=== PATIENT | male | born 1980 | race Caucasian/White ===

== ENCOUNTER 2016-10-29 17:15 | Emergency (ER) | payer MEDICAID ==
[~2016-10-29] VITALS: Ht 170.2 cm; Wt 69.0 kg
[2016-10-29] MEDS ORDERED: LORazepam 2 MG/ML VIAL ONE (17:36)
[2016-10-29] MEDS ORDERED: DiphenhydrAMINE HCL 50 MG/ML VIAL ONE (17:36)
[2016-10-29] MEDS ORDERED: HALOPERIDOL LACTATE 5 MG/ML VIAL ONE (17:36)
[2016-10-29] MEDS ORDERED: LORazepam 2 MG/ML VIAL IM ONE (17:45)
[2016-10-29] MEDS ORDERED: DiphenhydrAMINE HCL 50 MG/ML VIAL IM ONE (17:45)
[2016-10-29] MEDS ORDERED: HALOPERIDOL LACTATE 5 MG/ML VIAL IM ONE (17:45)
[2016-10-29] MEDS ORDERED: [UNRECOGNIZED DRUG - REMARK] PO (17:59)
[2016-10-29 19:38] LABS: BASOPHILS % (AUTO) 0.6 % (0.0-2.0); HEMATOCRIT 44.2 % (41-53); HEMOGLOBIN 14.6 g/dL (13.5-17.5); LYMPHOCYTES # (AUTO) 2.9 K/uL (1.0-4.8); LYMPHOCYTES % (AUTO) 42.1 % (22.0-44.0); MEAN CORPUSCULAR HEMOGLOBIN 30.4 pg (26.0-34.0); MEAN CORPUSCULAR VOLUME 92 fL (80-100); MONOCYTES # (AUTO) 0.4 K/uL (0.1-1.0); MONOCYTES % (AUTO) 6.4 % (2.0-9.0); NEUTROPHILS # (AUTO) 3.4 K/uL (1.8-7.7); NEUTROPHILS % (AUTO) 48.9 % (40.0-70.0); PLATELET COUNT (AUTO) 329 K/uL (150-450); RED CELL DISTRIBUTION WIDTH 13.4 % (11.5-14.5); WHITE BLOOD COUNT (AUTO) 6.9 K/uL (4.5-11.0)
[2016-10-29 19:49] LABS: ANION GAP 14 mmol/L (8-16); CARBON DIOXIDE 24 mmol/L (22-29); CHLORIDE 107 mmol/L (98-107); CREATININE 1.07 mg/dL (0.60-1.30); GLOMERULAR FILTR. RATE CALC > 60 mL/min (>60); POTASSIUM 3.8 mmol/L (3.5-5.1); SODIUM SERUM 145 mmol/L (136-145); UREA NITROGEN, BLOOD 14 mg/dL (7-18)
[2016-10-29 19:50] LABS: CALCIUM, TOTAL 8.1 mg/dL (8.8-10.5)
[2016-10-29 19:55] LABS: ALANINE AMINOTRANSFERASE 32 U/L (12-78); ALBUMIN 3.9 g/dL (3.4-5.0); ASPARTATE AMINOTRANSFERASE 24 U/L (15-37); BILIRUBIN,TOTAL 0.2 mg/dL (0.1-1.0); TOTAL PROTEIN, SERUM 7.3 g/dL (6.4-8.2)
[2016-10-30 03:47] VITALS: BP 122/78
== END 2016-10-30 03:54 | disposition home or self-care (01) ==
LOC: EMS 17:17
DX: F10.229 Alcohol dependence with intoxication, unspecified (principal); I10 Essential (primary) hypertension; F17.210 Nicotine dependence, cigarettes, uncomplicated; F12.90 Cannabis use, unspecified, uncomplicated; Y90.7 Blood alcohol level of 200-239 mg/100 ml
CPT/HCPCS: 36415; 80053; 85025; 96372; 99284; G0480; J1200; J1630; J2060

== ENCOUNTER 2017-01-17 09:48 | Emergency (ER) | payer MEDICAID ==
[~2017-01-17] VITALS: Ht 167.6 cm; Wt 75.0 kg
[~2017-01-17 09:48] MED LIST: [UNRECOGNIZED DRUG - REMARK] PO
[2017-01-17 09:55] VITALS: BP 157/101
[2017-01-17] MEDS ORDERED: IBUPROFEN 800 MG TABLET PO ONE (11:00)
== END 2017-01-17 12:55 | disposition home or self-care (01) ==
LOC: EMS 09:53
DX: S63.502A Unspecified sprain of left wrist, initial encounter (principal); I10 Essential (primary) hypertension; F17.210 Nicotine dependence, cigarettes, uncomplicated; X58.XXXA Exposure to other specified factors, initial encounter; Y93.B2 Activity, push-ups, pull-ups, sit-ups; Y92.89 Other specified places as the place of occurrence of the external cause; Y99.8 Other external cause status
CPT/HCPCS: 99284

== ENCOUNTER 2017-02-01 13:38 | Emergency (ER) | payer MEDICAID ==
[~2017-02-01] VITALS: Ht 167.6 cm; Wt 75.0 kg
[2017-02-01 17:12] VITALS: BP 146/88
== END 2017-02-01 17:13 | disposition home or self-care (01) ==
LOC: EMS 13:42
DX: M25.532 Pain in left wrist (principal); I10 Essential (primary) hypertension; F17.210 Nicotine dependence, cigarettes, uncomplicated
CPT/HCPCS: 99281

== ENCOUNTER 2017-06-03 09:54 | Emergency (ER) | payer MEDICAID ==
[~2017-06-03] VITALS: Ht 167.6 cm; Wt 72.7 kg
[2017-06-03 12:51] VITALS: BP 156/108
== END 2017-06-03 13:01 | disposition home or self-care (01) ==
LOC: EMS 09:55
DX: Z11.1 Encounter for screening for respiratory tuberculosis (principal); R76.11 Nonspecific reaction to tuberculin skin test without active tuberculosis; I10 Essential (primary) hypertension; F17.210 Nicotine dependence, cigarettes, uncomplicated
CPT/HCPCS: 99283; 99406

== ENCOUNTER 2017-06-10 10:14 | Emergency (ER) | payer MEDICAID ==
[~2017-06-10] VITALS: Ht 167.6 cm; Wt 77.0 kg
[2017-06-10] MEDS ORDERED: ATEN50TA PO (10:23)
[2017-06-10 11:06] VITALS: BP 145/92
== END 2017-06-10 11:21 | disposition home or self-care (01) ==
LOC: EMS 10:15
DX: I10 Essential (primary) hypertension (principal); F17.210 Nicotine dependence, cigarettes, uncomplicated
CPT/HCPCS: 99281

== ENCOUNTER 2017-08-05 05:38 | Emergency (ER) | payer MEDICAID ==
[~2017-08-05] VITALS: Ht 172.7 cm; Wt 98.2 kg
[~2017-08-05 05:38] MED LIST changes: +ATEN50TA PO; -[UNRECOGNIZED DRUG - REMARK] PO
[2017-08-05 05:41] VITALS: BP 158/105
== END 2017-08-05 05:52 | disposition left against medical advice (07) ==
LOC: EMS 05:40
DX: Z53.21 Procedure and treatment not carried out due to patient leaving prior to being seen by health care provider (principal)

== ENCOUNTER 2017-11-07 23:19 | Emergency (ER) | payer MEDICAID ==
[~2017-11-07] VITALS: Ht 167.6 cm; Wt 90.9 kg
[2017-11-07 23:40] VITALS: BP 153/98
== END 2017-11-08 01:42 | disposition left against medical advice (07) ==
LOC: EMS 23:19
DX: M79.642 Pain in left hand (principal); M79.89 Other specified soft tissue disorders; F17.210 Nicotine dependence, cigarettes, uncomplicated; I10 Essential (primary) hypertension; Z53.21 Procedure and treatment not carried out due to patient leaving prior to being seen by health care provider
CPT/HCPCS: 99281

== ENCOUNTER 2017-12-03 14:22 | Emergency (ER) | payer MEDICAID ==
[~2017-12-03] VITALS: Ht 167.6 cm; Wt 75.0 kg
[2017-12-03] MEDS ORDERED: IBUP-2354 PO (14:30)
[2017-12-03] MEDS ORDERED: HYDROCODONE/ACETAMINOPHEN 5-325 MG TABLET PO ONE (15:15)
[2017-12-03 15:47] LABS: BASOPHILS % (AUTO) 0.9 % (0.0-2.0); EOSINOPHILS % (AUTO) 2.5 % (1.0-6.0); HEMATOCRIT 48.1 % (41-53); HEMOGLOBIN 16.5 g/dL (13.5-17.5); LYMPHOCYTES # (AUTO) 0.7 K/uL (1.0-4.8); LYMPHOCYTES % (AUTO) 10.9 % (22.0-44.0); MEAN CORPUSCULAR HEMOGLOBIN 31.5 pg (26.0-34.0); MEAN CORPUSCULAR HGB CONC 34.3 G/dL (31.0-37.0); MEAN CORPUSCULAR VOLUME 92 fL (80-100); MONOCYTES # (AUTO) 0.5 K/uL (0.1-1.0); MONOCYTES % (AUTO) 8.3 % (2.0-9.0); NEUTROPHILS # (AUTO) 5.1 K/uL (1.8-7.7); NEUTROPHILS % (AUTO) 77.4 % (40.0-70.0); PLATELET COUNT (AUTO) 182 K/uL (150-450); RED BLOOD CELL COUNT(AUTO) 5.24 MIL/uL (4.50-5.90); RED CELL DISTRIBUTION WIDTH 12.9 % (11.5-14.5)
[2017-12-03 15:56] LABS: ANION GAP 13 mmol/L (8-16); CALCIUM, TOTAL 9.5 mg/dL (8.8-10.5); CARBON DIOXIDE 26 mmol/L (22-29); CHLORIDE 95 mmol/L (98-107); CREATININE 0.84 mg/dL (0.60-1.30); GLOMERULAR FILTR. RATE CALC > 60 mL/min (>60); GLUCOSE,RANDOM 114 mg/dL (70-110); POTASSIUM 3.7 mmol/L (3.5-5.1); SODIUM SERUM 134 mmol/L (136-145); UREA NITROGEN, BLOOD 6 mg/dL (7-18)
[2017-12-03 16:01] LABS: ALANINE AMINOTRANSFERASE 478 U/L (12-78); ALBUMIN 3.3 g/dL (3.4-5.0); ALKALINE PHOSPHATASE 248 U/L (46-116); ASPARTATE AMINOTRANSFERASE 243 U/L (15-37); BILIRUBIN,TOTAL 0.3 mg/dL (0.1-1.0)
[2017-12-03 16:15] LABS: PLATELET MORPHOLOGY COMMENT GIANT PLTS PRESENT
[2017-12-03 16:31] LABS: APPEARANCE,URINE CLEAR (CLEAR); BILIRUBIN,URINE NEGATIVE (NEGATIVE); GLUCOSE, URINE (UA) NEGATIVE (NEGATIVE); KETONES,URINE NEGATIVE (NEGATIVE); LEUKOCYTE ESTERASE ,URINE NEGATIVE (NEGATIVE); NITRATE,URINE NEGATIVE (NEGATIVE); OCCULT BLOOD,URINE NEGATIVE (NEGATIVE); PROTEIN,URINE TRACE (NEGATIVE)
[2017-12-03 16:33] LABS: AMPHET/METH SCREEN,URINE NEGATIVE (NEGATIVE); BARBITURATE SCREEN, URINE NEGATIVE (NEGATIVE); BENZODIAZEPINES SCREEN,URINE NEGATIVE (NEGATIVE); CANNABINOID SCREEN,URINE POSITIVE (NEGATIVE); COCAINE SCREEN,URINE NEGATIVE (NEGATIVE); METHADONE SCREEN, URINE NEGATIVE (NEGATIVE); OPIATE SCREEN,URINE NEGATIVE (NEGATIVE)
[2017-12-03 16:35] LABS: PHENCYCLIDINE SCREEN,URINE NEGATIVE (NEGATIVE)
[2017-12-03 17:11] VITALS: BP 131/104
== END 2017-12-03 17:20 | disposition home or self-care (01) ==
LOC: EMS 14:23
DX: I10 Essential (primary) hypertension (principal); F10.20 Alcohol dependence, uncomplicated; F17.210 Nicotine dependence, cigarettes, uncomplicated; F12.90 Cannabis use, unspecified, uncomplicated
CPT/HCPCS: 70450; 93005; 99285; 99406

== ENCOUNTER 2018-01-27 14:59 | Emergency (ER) | payer MEDICAID ==
[~2018-01-27] VITALS: Ht 167.6 cm; Wt 72.7 kg
[~2018-01-27 14:59] MED LIST changes: -ATEN50TA PO; +IBUP-2354 PO
[2018-01-27] MEDS ORDERED: KETOROLAC TROMETHAMINE 10 MG TABLET PO ONE (17:15)
[2018-01-27 17:23] VITALS: BP 147/96
== END 2018-01-27 17:37 | disposition home or self-care (01) ==
LOC: EMS 15:01
DX: S60.211A Contusion of right wrist, initial encounter (principal); I10 Essential (primary) hypertension; F17.210 Nicotine dependence, cigarettes, uncomplicated; W19.XXXA Unspecified fall, initial encounter; Y93.89 Activity, other specified; Y92.89 Other specified places as the place of occurrence of the external cause; Y99.8 Other external cause status
CPT/HCPCS: 99284

== ENCOUNTER 2018-09-20 12:03 | Emergency (ER) | payer MEDICAID ==
[~2018-09-20] VITALS: Ht 167.6 cm; Wt 75.0 kg
[2018-09-20 13:31] VITALS: BP 141/100
== END 2018-09-20 13:35 | disposition home or self-care (01) ==
LOC: EMS 12:04
DX: J20.9 Acute bronchitis, unspecified (principal); I10 Essential (primary) hypertension; M79.10 Myalgia, unspecified site

== ENCOUNTER 2018-11-05 15:00 | Emergency (ER) | payer MEDICAID | END 2018-11-05 15:18 | disposition left against medical advice (07) | LOC: EMS 15:01 | DX: Z00.00 Encounter for general adult medical examination without abnormal findings (principal); Z53.21 Procedure and treatment not carried out due to patient leaving prior to being seen by health care provider ==

== ENCOUNTER 2018-11-06 00:54 | Emergency (ER) | payer MEDICAID ==
[~2018-11-06] VITALS: Ht 167.6 cm; Wt 72.7 kg
[2018-11-06] MEDS ORDERED: MethylPREDNISolone SOD SUCC 125 MG/2 ML VIAL IM ONE (01:45)
[2018-11-06] MEDS ORDERED: LIDOCAINE/PF 1% 2 ML VIAL IM ONE (01:45)
[2018-11-06] MEDS ORDERED: CefTRIAXone SODIUM 1 GM/VIAL IM ONE (01:45)
[2018-11-06 03:04] LABS: BASOPHILS % (AUTO) 0.7 % (0.0-2.0); EOSINOPHILS % (AUTO) 0.6 % (1.0-6.0); HEMATOCRIT 43.8 % (41-53); HEMOGLOBIN 14.8 g/dL (13.5-17.5); LYMPHOCYTES # (AUTO) 2.2 K/uL (1.0-4.8); LYMPHOCYTES % (AUTO) 12.4 % (22.0-44.0); MEAN CORPUSCULAR HEMOGLOBIN 30.4 pg (26.0-34.0); MEAN CORPUSCULAR HGB CONC 33.7 G/dL (31.0-37.0); MEAN CORPUSCULAR VOLUME 90 fL (80-100); MONOCYTES # (AUTO) 1.8 K/uL (0.1-1.0); MONOCYTES % (AUTO) 10.1 % (2.0-9.0); NEUTROPHILS # (AUTO) 13.8 K/uL (1.8-7.7); NEUTROPHILS % (AUTO) 76.2 % (40.0-70.0); PLATELET COUNT (AUTO) 380 K/uL (150-450); RED BLOOD CELL COUNT(AUTO) 4.86 MIL/uL (4.50-5.90); RED CELL DISTRIBUTION WIDTH 13.5 % (11.5-14.5)
[2018-11-06] MEDS ORDERED: SODIUM CHLORIDE 0.9% 1,000 ML IV ONE (03:15)
[2018-11-06] MEDS ORDERED: KETOROLAC TROMETHAMINE 30 MG/ML VIAL IVP ONE (03:15)
[2018-11-06] MEDS ORDERED: MethylPREDNISolone SOD SUCC 125 MG/2 ML VIAL IVP ONE (03:15)
[2018-11-06] MEDS ORDERED: CefTRIAXone 1 GM/DEXTROSE 50 ML IV ONE (03:15)
[2018-11-06 03:19] LABS: ANION GAP 8 mmol/L (8-16); CALCIUM, TOTAL 9.2 mg/dL (8.8-10.5); CARBON DIOXIDE 28 mmol/L (22-29); CHLORIDE 93 mmol/L (98-107); CREATININE 0.87 mg/dL (0.60-1.30); GLOMERULAR FILTR. RATE CALC > 60 mL/min (>60); GLUCOSE,RANDOM 95 mg/dL (70-110); SODIUM SERUM 129 mmol/L (136-145); UREA NITROGEN, BLOOD 12 mg/dL (7-18)
[2018-11-06 03:24] LABS: ALANINE AMINOTRANSFERASE 18 U/L (12-78); ALBUMIN 3.5 g/dL (3.4-5.0); ALKALINE PHOSPHATASE 99 U/L (46-116); ASPARTATE AMINOTRANSFERASE 11 U/L (15-37); BILIRUBIN,TOTAL 0.6 mg/dL (0.1-1.0); TOTAL PROTEIN, SERUM 8.3 g/dL (6.4-8.2)
[2018-11-06] MEDS ORDERED: CloNIDine HCL 0.2 MG TABLET PO ONE (03:30)
[2018-11-06 04:15] VITALS: BP 174/81
== END 2018-11-06 05:00 | disposition short-term general hospital (02) ==
LOC: EMS 00:55
DX: J36 Peritonsillar abscess (principal)
CPT/HCPCS: 36415; 70360; 80053; 83605; 85025; 87040; 87430; 96365; 96375; 99285; J0696; J1885; J2930; J7030

== ENCOUNTER 2019-08-01 08:57 | Emergency (ER) | payer MEDICAID ==
[~2019-08-01] VITALS: Ht 167.6 cm; Wt 72.7 kg
[2019-08-01 09:07] VITALS: BP 156/115
== END 2019-08-01 10:25 | disposition left against medical advice (07) ==
LOC: EMS 08:58
DX: J02.9 Acute pharyngitis, unspecified (principal); Z53.21 Procedure and treatment not carried out due to patient leaving prior to being seen by health care provider

== ENCOUNTER 2019-08-01 15:36 | Emergency (ER) | payer MEDICAID ==
[~2019-08-01] VITALS: Ht 167.6 cm; Wt 75.0 kg
[2019-08-01] MEDS ORDERED: KETOROLAC TROMETHAMINE 30 MG/ML VIAL IVP ONE (16:15)
[2019-08-01] MEDS ORDERED: CLINDAMYCIN 900 MG/D5% WATER 50 ML IV ONE (16:15)
[2019-08-01] MEDS ORDERED: MethylPREDNISolone SOD SUCC 125 MG/2 ML VIAL IVP ONE (16:15)
[2019-08-01] MEDS ORDERED: SODIUM CHLORIDE 0.9% 1,000 ML IV ONE (16:15)
[2019-08-01 16:31] LABS: BASOPHILS % (AUTO) 0.4 % (0.0-2.0); EOSINOPHILS % (AUTO) 0 % (1.0-6.0); HEMOGLOBIN 14.8 g/dL (13.5-17.5); LYMPHOCYTES % (AUTO) 4.4 % (22.0-44.0); MEAN CORPUSCULAR HEMOGLOBIN 31.5 pg (26.0-34.0); MEAN CORPUSCULAR HGB CONC 33.7 G/dL (31.0-37.0); MEAN CORPUSCULAR VOLUME 93 fL (80-100); MONOCYTES # (AUTO) 2.2 K/uL (0.1-1.0); NEUTROPHILS % (AUTO) 85.2 % (40.0-70.0); PLATELET COUNT (AUTO) 293 K/uL (150-450); RED BLOOD CELL COUNT(AUTO) 4.71 MIL/uL (4.50-5.90); RED CELL DISTRIBUTION WIDTH 12.5 % (11.5-14.5)
[2019-08-01 16:40] LABS: ANION GAP 7 mmol/L (8-16); CALCIUM, TOTAL 9.3 mg/dL (8.8-10.5); CARBON DIOXIDE 29 mmol/L (22-29); CHLORIDE 97 mmol/L (98-107); GLOMERULAR FILTR. RATE CALC > 60 mL/min (>60); GLUCOSE,RANDOM 126 mg/dL (70-110); POTASSIUM 4.9 mmol/L (3.5-5.1); SODIUM SERUM 133 mmol/L (136-145); UREA NITROGEN, BLOOD 8 mg/dL (7-18)
[2019-08-01 16:46] LABS: INR 1.1 (0.9-1.1); PROTHROMBIN TIME 10.7 SEC (9.4-11.6)
[2019-08-01 16:56] LABS: B-TYPE NATRIURETIC PEPTIDE 29 pg/mL (0-100)
[2019-08-01 17:04] LABS: ALANINE AMINOTRANSFERASE 25 U/L (12-78); ALBUMIN 3.8 g/dL (3.4-5.0); ALKALINE PHOSPHATASE 108 U/L (46-116); ASPARTATE AMINOTRANSFERASE 13 U/L (15-37); BILIRUBIN,TOTAL 0.3 mg/dL (0.1-1.0); CREATINE KINASE, TOTAL ONLY 180 U/L (39-308); TOTAL PROTEIN, SERUM 8.6 g/dL (6.4-8.2)
[2019-08-01 17:07] LABS: PLATELET MORPHOLOGY COMMENT NORMAL
[2019-08-01] MEDS ORDERED: ACETAMINOPHEN 1000 MG/ISO-OSM 100 ML IV ONE (17:45)
[2019-08-01 20:41] VITALS: BP 138/75
== END 2019-08-01 22:26 | disposition left against medical advice (07) ==
LOC: EMS 15:37
DX: J36 Peritonsillar abscess (principal); I10 Essential (primary) hypertension; F17.210 Nicotine dependence, cigarettes, uncomplicated; F12.90 Cannabis use, unspecified, uncomplicated; F19.90 Other psychoactive substance use, unspecified, uncomplicated
CPT/HCPCS: 36415; 70490; 80053; 82550; 83880; 84484; 85025; 85610; 85730; 87430; 96365; 96375; 99291; J0131; J1885; J2930; J3490; J7030

== ENCOUNTER 2019-08-07 10:02 | Emergency (ER) | payer MEDICAID ==
[~2019-08-07] VITALS: Ht 172.7 cm; Wt 81.8 kg
[2019-08-07] MEDS ORDERED: SODIUM CHLORIDE 0.9% 1,000 ML IV ONE (12:00)
[2019-08-07] MEDS ORDERED: KETOROLAC TROMETHAMINE 30 MG/ML VIAL IVP ONE (12:00)
[2019-08-07] MEDS ORDERED: 0.9% SODIUM CHLORIDE 10 ML SYRINGE IVP PRN (12:00)
[2019-08-07] MEDS ORDERED: VANCOMYCIN HCL 1 GM/D5% WATER 200 ML IV ONE (12:00)
[2019-08-07] MEDS ORDERED: PIPERACILLIN/TAZO 3.375 GM/D5W 50 ML IV ONE (12:00)
[2019-08-07] MEDS ORDERED: MethylPREDNISolone SOD SUCC 125 MG/2 ML VIAL IVP ONE (12:00)
[2019-08-07 12:24] LABS: BASOPHILS % (AUTO) 0.5 % (0.0-2.0); EOSINOPHILS % (AUTO) 0.4 % (1.0-6.0); HEMATOCRIT 47.6 % (41-53); HEMOGLOBIN 15.9 g/dL (13.5-17.5); LYMPHOCYTES # (AUTO) 1.6 K/uL (1.0-4.8); LYMPHOCYTES % (AUTO) 6.1 % (22.0-44.0); MEAN CORPUSCULAR HEMOGLOBIN 31.2 pg (26.0-34.0); MEAN CORPUSCULAR HGB CONC 33.4 G/dL (31.0-37.0); MEAN CORPUSCULAR VOLUME 93 fL (80-100); MONOCYTES # (AUTO) 1.4 K/uL (0.1-1.0); MONOCYTES % (AUTO) 5.5 % (2.0-9.0); NEUTROPHILS # (AUTO) 22.7 K/uL (1.8-7.7); PLATELET COUNT (AUTO) 459 K/uL (150-450); RED CELL DISTRIBUTION WIDTH 13.3 % (11.5-14.5)
[2019-08-07 12:25] LABS: NEUTROPHILS % (AUTO) 87.5 % (40.0-70.0)
[2019-08-07 12:38] LABS: ANION GAP 10 mmol/L (8-16); CALCIUM, TOTAL 9.6 mg/dL (8.8-10.5); CARBON DIOXIDE 28 mmol/L (22-29); CHLORIDE 99 mmol/L (98-107); CREATININE 0.85 mg/dL (0.60-1.30); GLOMERULAR FILTR. RATE CALC > 60 mL/min (>60); GLUCOSE,RANDOM 90 mg/dL (70-110); POTASSIUM 4.9 mmol/L (3.5-5.1); SODIUM SERUM 137 mmol/L (136-145); UREA NITROGEN, BLOOD 13 mg/dL (7-18)
[2019-08-07 12:43] LABS: ALANINE AMINOTRANSFERASE 26 U/L (12-78); ALBUMIN 3.7 g/dL (3.4-5.0); ALKALINE PHOSPHATASE 105 U/L (46-116); ASPARTATE AMINOTRANSFERASE 15 U/L (15-37); BILIRUBIN,TOTAL 0.6 mg/dL (0.1-1.0); TOTAL PROTEIN, SERUM 8.9 g/dL (6.4-8.2)
[2019-08-07] MEDS ORDERED: SODIUM CHLORIDE 0.9% 100 ML ONE (12:48)
[2019-08-07] MEDS ORDERED: IOVERSOL 350 MG/ML 100 ML VIAL ONE (12:49)
[2019-08-07 17:00] VITALS: BP 141/90
== END 2019-08-07 18:09 | disposition short-term general hospital (02) ==
LOC: EMS 10:04
DX: J36 Peritonsillar abscess (principal); I10 Essential (primary) hypertension; F17.210 Nicotine dependence, cigarettes, uncomplicated; F12.90 Cannabis use, unspecified, uncomplicated; F19.90 Other psychoactive substance use, unspecified, uncomplicated
CPT/HCPCS: 36415; 70491; 80053; 83605; 85025; 87040; 93005; 96365; 96366; 96367; 96375; 99285; J1885; J2543; J2930; J3370; J7030; J7050; Q9967

== ENCOUNTER 2021-01-13 02:11 | Emergency (ER) | payer MEDICAID ==
[~2021-01-13] VITALS: Ht 167.6 cm; Wt 75.0 kg
[2021-01-13] MEDS ORDERED: SODIUM CHLORIDE 0.9% 1,000 ML IV ONE (03:30)
[2021-01-13] MEDS ORDERED: ONDANSETRON HCL 4 MG/2 ML VIAL IVP ONE (03:30)
[2021-01-13 04:16] LABS: BASOPHILS % (AUTO) 0.5 % (0.0-2.0); EOSINOPHILS % (AUTO) 1.8 % (1.0-6.0); LYMPHOCYTES # (AUTO) 2.4 K/uL (1.0-4.8); LYMPHOCYTES % (AUTO) 25.1 % (22.0-44.0); MEAN CORPUSCULAR HEMOGLOBIN 31.1 pg (26.0-34.0); MEAN CORPUSCULAR HGB CONC 34.1 G/dL (31.0-37.0); MEAN CORPUSCULAR VOLUME 91 fL (80-100); MONOCYTES # (AUTO) 0.6 K/uL (0.1-1.0); MONOCYTES % (AUTO) 6.4 % (2.0-9.0); NEUTROPHILS # (AUTO) 6.4 K/uL (1.8-7.7); NEUTROPHILS % (AUTO) 66.2 % (40.0-70.0); PLATELET COUNT (AUTO) 248 K/uL (150-450); RED BLOOD CELL COUNT(AUTO) 5.48 MIL/uL (4.50-5.90); RED CELL DISTRIBUTION WIDTH 13.7 % (11.5-14.5)
[2021-01-13 04:19] LABS: ANION GAP 12 mmol/L (8-16); CARBON DIOXIDE 26 mmol/L (22-29); CHLORIDE 101 mmol/L (98-107); CREATININE 1.06 mg/dL (0.60-1.30); GLOMERULAR FILTR. RATE CALC > 60 mL/min (>60); GLUCOSE,RANDOM 93 mg/dL (70-110); POTASSIUM 3.7 mmol/L (3.5-5.1); SODIUM SERUM 139 mmol/L (136-145); UREA NITROGEN, BLOOD 13 mg/dL (7-18)
[2021-01-13 04:43] LABS: CREATINE KINASE, TOTAL ONLY 285 U/L (39-308)
[2021-01-13] MEDS ORDERED: CloNIDine HCL 0.1 MG TABLET PO ONE (05:45)
[2021-01-13] MEDS ORDERED: HydrALAZINE HCL 20 MG/ML VIAL IVP ONE (07:30)
[2021-01-13 09:18] VITALS: BP 148/127
== END 2021-01-13 09:30 | disposition home or self-care (01) ==
LOC: EMS 02:12
DX: T43.621A Poisoning by amphetamines, accidental (unintentional), initial encounter (principal); I10 Essential (primary) hypertension; F17.210 Nicotine dependence, cigarettes, uncomplicated; F12.90 Cannabis use, unspecified, uncomplicated; Y92.89 Other specified places as the place of occurrence of the external cause
CPT/HCPCS: 36415; 80048; 82550; 84484; 85025; 93005; 96361; 96374; 96375; 99285; G0480; J0360; J2405; J7030

== ENCOUNTER 2021-05-31 14:27 | Emergency (ER) | payer MEDICAID | END 2021-05-31 15:12 | disposition left against medical advice (07) | LOC: EMS 14:34 | DX: T14.8XXA Other injury of unspecified body region, initial encounter (principal); Z53.21 Procedure and treatment not carried out due to patient leaving prior to being seen by health care provider; X58.XXXA Exposure to other specified factors, initial encounter ==

== ENCOUNTER 2021-07-12 22:49 | Emergency (ER) | payer MEDICAID ==
[~2021-07-12] VITALS: Ht 167.6 cm; Wt 88.6 kg
[2021-07-12 22:57] VITALS: BP 162/117
[2021-07-12] MEDS ORDERED: ACETAMINOPHEN 500 MG TABLET PO ONE (23:45)
== END 2021-07-13 02:33 | disposition home or self-care (01) ==
LOC: EMS 22:57
DX: S93.602A Unspecified sprain of left foot, initial encounter (principal); F10.129 Alcohol abuse with intoxication, unspecified; I10 Essential (primary) hypertension; F17.210 Nicotine dependence, cigarettes, uncomplicated; F12.90 Cannabis use, unspecified, uncomplicated; F15.90 Other stimulant use, unspecified, uncomplicated; Y04.0XXA Assault by unarmed brawl or fight, initial encounter; Y93.89 Activity, other specified; Y92.89 Other specified places as the place of occurrence of the external cause; Y99.8 Other external cause status
CPT/HCPCS: 99284

== ENCOUNTER 2021-07-21 05:10 | Emergency (ER) | payer MEDICAID | END 2021-07-21 05:35 | disposition left against medical advice (07) | LOC: EMS 05:11 | DX: M25.473 Effusion, unspecified ankle (principal); Z53.21 Procedure and treatment not carried out due to patient leaving prior to being seen by health care provider ==

== ENCOUNTER 2021-08-16 04:31 | Emergency (ER) | payer MEDICAID ==
[~2021-08-16] VITALS: Ht 167.6 cm; Wt 77.3 kg
[2021-08-16 04:34] VITALS: BP 154/78
[2021-08-16] MEDS ORDERED: IBUPROFEN 600 MG TABLET PO ONE (04:45)
== END 2021-08-16 07:40 | disposition home or self-care (01) ==
LOC: EMS 04:35
DX: G89.29 Other chronic pain (principal); M25.572 Pain in left ankle and joints of left foot; F12.90 Cannabis use, unspecified, uncomplicated; F15.90 Other stimulant use, unspecified, uncomplicated; F17.210 Nicotine dependence, cigarettes, uncomplicated
CPT/HCPCS: 99283

== ENCOUNTER 2022-02-07 07:42 | Emergency (ER) | payer MEDICAID ==
[~2022-02-07] VITALS: Ht 167.6 cm; Wt 72.7 kg
[2022-02-07 07:49] VITALS: BP 155/110
[2022-02-07 08:15] LABS: COVID AG,FIA SOURCE NASOPHARYNGEAL
[2022-02-07] MEDS ORDERED: CEPH-558 PO (08:28)
[2022-02-07] MEDS ORDERED: ACET-66 PO (08:28)
== END 2022-02-07 09:18 | disposition home or self-care (01) ==
LOC: EMS 07:44
DX: J02.9 Acute pharyngitis, unspecified (principal); I10 Essential (primary) hypertension; F17.210 Nicotine dependence, cigarettes, uncomplicated; F12.90 Cannabis use, unspecified, uncomplicated; F15.90 Other stimulant use, unspecified, uncomplicated; Z98.890 Other specified postprocedural states; Z20.822 Contact with and (suspected) exposure to COVID-19
CPT/HCPCS: 87430; 99283

== ENCOUNTER 2023-04-25 23:36 | Emergency (ER) | payer MEDICAID ==
[~2023-04-25] VITALS: Ht 167.6 cm; Wt 85.5 kg
[~2023-04-25 23:36] MED LIST changes: +ACET-66 PO; +CEPH-558 PO; -IBUP-2354 PO
[2023-04-26 00:17] VITALS: BP 146/100; PULSE 100; RESP 17; TEMP 98
[2023-04-26] MEDS ORDERED: AMLO5TAB66 PO (00:20)
== END 2023-04-26 01:59 | disposition left against medical advice (07) ==
LOC: EMS 23:37
DX: M79.675 Pain in left toe(s) (principal); Z53.21 Procedure and treatment not carried out due to patient leaving prior to being seen by health care provider
CPT/HCPCS: 99281; Z7502

== ENCOUNTER 2023-12-28 05:17 | Emergency (ER) | payer MEDICAID ==
[~2023-12-28] VITALS: Ht 167.6 cm; Wt 81.4 kg
[~2023-12-28 05:17] MED LIST changes: -ACET-66 PO; +AMLO5TAB66 PO; -CEPH-558 PO
[2023-12-28 05:30] VITALS: BP 177/110; PULSE 78; RESP 16
[2023-12-28] MEDS ORDERED: AMLO-258 PO (05:38)
[2023-12-28] MEDS: AmLODIPine BESYLATE 10 MG TABLET PO ONE (05:45)
== END 2023-12-28 05:52 | disposition home or self-care (01) ==
LOC: EMS 05:18
DX: I10 Essential (primary) hypertension (principal); F17.210 Nicotine dependence, cigarettes, uncomplicated; F12.90 Cannabis use, unspecified, uncomplicated; F15.90 Other stimulant use, unspecified, uncomplicated; Z76.0 Encounter for issue of repeat prescription; Z98.890 Other specified postprocedural states
CPT/HCPCS: 99283

== ENCOUNTER 2024-06-11 18:49 | Emergency (ER) | payer MEDICAID ==
[~2024-06-11] VITALS: Ht 167.6 cm; Wt 90.9 kg
[~2024-06-11 18:49] MED LIST changes: +AMLO-258 PO
[2024-06-11 19:21] VITALS: BP 147/88; PULSE 99; RESP 16; TEMP 98.7; O2SAT 97
== END 2024-06-11 19:55 | disposition home or self-care (01) ==
LOC: EMS 18:49
DX: I10 Essential (primary) hypertension (principal); F12.90 Cannabis use, unspecified, uncomplicated; F15.90 Other stimulant use, unspecified, uncomplicated; F17.210 Nicotine dependence, cigarettes, uncomplicated; Z98.890 Other specified postprocedural states; F10.90 Alcohol use, unspecified, uncomplicated; Z76.0 Encounter for issue of repeat prescription; Y90.9 Presence of alcohol in blood, level not specified
CPT/HCPCS: 99281; Z7502

== ENCOUNTER 2024-06-17 06:37 | Emergency (ER) | payer MEDICAID ==
[~2024-06-17] VITALS: Ht 167.6 cm; Wt 80.9 kg
[2024-06-17 06:55] VITALS: TEMP 98.8
[2024-06-17 07:10] LABS: COVID AG,FIA SOURCE NASAL SWAB
[2024-06-17] MEDS: CefTRIAXone 1 GM/DEXTROSE 50 ML IV ONE (07:16)
[2024-06-17] MEDS: DEXAMETHASONE SOD PHOS 4 MG/ML 5 ML VIAL IVP ONE (07:16)
[2024-06-17] MEDS: KETOROLAC TROMETHAMINE 30 MG/ML VIAL IVP ONE (07:16)
[2024-06-17 07:37] LABS: RAPID GROUP A STREP POSITIVE (NEGATIVE)
[2024-06-17 07:42] LABS: SARS-COV2 (COVID) ANTIGEN,FIA Negative (Negative)
[2024-06-17 07:43] LABS: INFLUENZA TYPE A NEGATIVE FOR TYPE A (NEGATIVE); INFLUENZA TYPE B NEGATIVE FOR TYPE B (NEGATIVE)
[2024-06-17 08:05] VITALS: BP 149/88; PULSE 87; RESP 16; O2SAT 99
[2024-06-17] MEDS ORDERED: PRED-554 PO (08:07)
[2024-06-17] MEDS ORDERED: IBUP-1492 PO (08:07)
[2024-06-17] MEDS ORDERED: PENI500T2 PO (08:07)
== END 2024-06-17 08:19 | disposition home or self-care (01) ==
LOC: EMS 06:39
DX: J02.0 Streptococcal pharyngitis (principal); I10 Essential (primary) hypertension; F12.90 Cannabis use, unspecified, uncomplicated; F17.210 Nicotine dependence, cigarettes, uncomplicated; F15.10 Other stimulant abuse, uncomplicated; Z98.890 Other specified postprocedural states; Z79.899 Other long term (current) drug therapy; Z20.822 Contact with and (suspected) exposure to COVID-19
CPT/HCPCS: 99284; 96365; 96375; 87426; 87430; 87804; J0696; J1100; J1885

== ENCOUNTER 2024-11-26 21:50 | Emergency (ER) | payer MEDICAID ==
[~2024-11-26] VITALS: Ht 170.2 cm; Wt 90.9 kg
[~2024-11-26 21:50] MED LIST changes: +IBUP-1492 PO; +PENI500T2 PO; +PRED-554 PO
[2024-11-26 21:54] VITALS: TEMP 97.6
[2024-11-26] MEDS ORDERED: ACET-66 PO (22:46)
[2024-11-26] MEDS ORDERED: IBUP-1554 PO (22:46)
[2024-11-26] MEDS ORDERED: METH-659 PO (22:46)
[2024-11-26] MEDS: METHOCARBAMOL 500 MG TABLET PO ONE (23:03)
[2024-11-26] MEDS: GABAPENTIN 300 MG CAPSULE PO ONE (23:03)
[2024-11-26] MEDS: ACETAMINOPHEN 500 MG TABLET PO ONE (23:04)
[2024-11-26] MEDS: IBUPROFEN 600 MG TABLET PO ONE (23:04)
[2024-11-26 23:09] VITALS: BP 135/101; PULSE 100; RESP 18; O2SAT 98
== END 2024-11-26 23:10 | disposition home or self-care (01) ==
LOC: EMS 21:52
DX: S80.01XA Contusion of right knee, initial encounter (principal); S09.90XA Unspecified injury of head, initial encounter; R53.1 Weakness; M25.531 Pain in right wrist; I10 Essential (primary) hypertension; F12.90 Cannabis use, unspecified, uncomplicated; Z79.1 Long term (current) use of non-steroidal anti-inflammatories (NSAID); Z79.52 Long term (current) use of systemic steroids; Z87.820 Personal history of traumatic brain injury; Z59.00 Homelessness unspecified; Z79.899 Other long term (current) drug therapy; Z98.890 Other specified postprocedural states; X58.XXXA Exposure to other specified factors, initial encounter; Y93.89 Activity, other specified; Y92.89 Other specified places as the place of occurrence of the external cause; Y99.8 Other external cause status
CPT/HCPCS: 99284; Z7502; Z7610

== ENCOUNTER 2025-02-23 02:34 | Emergency (ER) | payer MEDICAID ==
[~2025-02-23] VITALS: Ht 167.6 cm; Wt 77.3 kg
[~2025-02-23 02:34] MED LIST changes: +ACET-66 PO; +IBUP-1554 PO; +METH-659 PO
[2025-02-23 02:55] VITALS: TEMP 98.2
[2025-02-23] MEDS: IBUPROFEN 400 MG TABLET PO ONE (04:23)
[2025-02-23] MEDS: ACETAMINOPHEN 500 MG TABLET PO ONE (04:24)
[2025-02-23] MEDS: dexAMETHasone 4 MG TABLET PO ONE (04:24)
[2025-02-23 06:04] VITALS: BP 141/86; PULSE 82; RESP 16; O2SAT 98
== END 2025-02-23 06:21 | disposition home or self-care (01) ==
LOC: EMS 02:35
DX: J02.8 Acute pharyngitis due to other specified organisms (principal); B97.89 Other viral agents as the cause of diseases classified elsewhere; I10 Essential (primary) hypertension; F12.90 Cannabis use, unspecified, uncomplicated; F17.210 Nicotine dependence, cigarettes, uncomplicated; F10.90 Alcohol use, unspecified, uncomplicated; Z79.1 Long term (current) use of non-steroidal anti-inflammatories (NSAID); Z79.52 Long term (current) use of systemic steroids; Z79.899 Other long term (current) drug therapy; Z98.890 Other specified postprocedural states; Y90.9 Presence of alcohol in blood, level not specified
CPT/HCPCS: 99284; 87430; J8540; Z7502; Z7610

== ENCOUNTER 2025-02-25 09:50 | Emergency (ER) | payer MEDICAID ==
[~2025-02-25] VITALS: Ht 167.6 cm; Wt 77.3 kg
[2025-02-25 09:56] VITALS: TEMP 97.9
[2025-02-25] MEDS: SODIUM CHLORIDE 0.9% 1,000 ML IV ONE (11:19)
[2025-02-25] MEDS: AMPICILLIN SODIUM/SULBACTAM NA 1.5 GM in SODIUM CHLORIDE 0.9% 50 ML IV ONE (11:20)
[2025-02-25 11:33] LABS: ANION GAP 7 mmol/L (8-16); CALCIUM, TOTAL 9.4 mg/dL (8.8-10.5); CARBON DIOXIDE 27 mmol/L (22-29); CHLORIDE 101 mmol/L (98-107); CREATININE 0.91 mg/dL (0.60-1.30); GLOMERULAR FILTR. RATE CALC > 60 mL/min (>60); GLUCOSE,RANDOM 94 mg/dL (70-110); POTASSIUM 4.2 mmol/L (3.5-5.1); SODIUM SERUM 135 mmol/L (136-145); UREA NITROGEN, BLOOD 15 mg/dL (7-18)
[2025-02-25] MEDS ORDERED: IOHEXOL 350 MG/ML 100 ML VIAL ONE (11:43)
[2025-02-25] MEDS ORDERED: 0.9% SODIUM CHLORIDE 10 ML SYRINGE IVP ONE (11:43)
[2025-02-25] MEDS ORDERED: SODIUM CHLORIDE 0.9% 100 ML ONE (11:43)
[2025-02-25 11:46] LABS: BASOPHILS % (AUTO) 0.7 % (0.0-2.0); EOSINOPHILS % (AUTO) 0.9 % (1.0-6.0); HEMATOCRIT 46.8 % (41-53); HEMOGLOBIN 15.9 g/dL (13.5-17.5); LYMPHOCYTES # (AUTO) 2.6 K/uL (1.0-4.8); MEAN CORPUSCULAR HEMOGLOBIN 31.8 pg (26.0-34.0); MEAN CORPUSCULAR HGB CONC 33.9 G/dL (31.0-37.0); MEAN CORPUSCULAR VOLUME 94 fL (80-100); MONOCYTES # (AUTO) 1.5 K/uL (0.1-1.0); NEUTROPHILS # (AUTO) 10.8 K/uL (1.8-7.7); NEUTROPHILS % (AUTO) 71.4 % (40.0-70.0); PLATELET COUNT (AUTO) 295 K/uL (150-450); RED BLOOD CELL COUNT(AUTO) 4.98 MIL/uL (4.50-5.90); RED CELL DISTRIBUTION WIDTH 13.2 % (11.5-14.5); WHITE BLOOD COUNT (AUTO) 15.1 K/uL (4.5-11.0)
[2025-02-25 11:48] LABS: LACTIC ACID 1.7 mmol/L (0.4-2.0)
[2025-02-25] MEDS: MORPHINE SULFATE 2 MG/ML SYRINGE IVP ONE (13:46)
[2025-02-25 14:54] VITALS: BP 163/117; PULSE 88; RESP 18; O2SAT 96
== END 2025-02-25 16:32 | disposition short-term general hospital (02) ==
LOC: EMS 09:52
DX: J36 Peritonsillar abscess (principal); I10 Essential (primary) hypertension; F12.90 Cannabis use, unspecified, uncomplicated; F17.210 Nicotine dependence, cigarettes, uncomplicated; F15.90 Other stimulant use, unspecified, uncomplicated; F10.90 Alcohol use, unspecified, uncomplicated; Z79.1 Long term (current) use of non-steroidal anti-inflammatories (NSAID); Z98.890 Other specified postprocedural states; Z79.899 Other long term (current) drug therapy; Z79.52 Long term (current) use of systemic steroids; Y90.9 Presence of alcohol in blood, level not specified
CPT/HCPCS: 99285; 42700; 96365; 70491; 96375; 80048; 83605; 85025; 87040; 36415; Q9967; J0295; J2270; J7030; J7050 ×2

== ENCOUNTER 2025-05-11 15:28 | Emergency (ER) | payer MEDICAID ==
[~2025-05-11] VITALS: Ht 170.2 cm; Wt 86.4 kg
[2025-05-11 15:33] VITALS: BP 135/95; PULSE 102; RESP 18; TEMP 98.9; O2SAT 99
== END 2025-05-11 16:34 | disposition left against medical advice (07) ==
LOC: EMS 15:28
DX: R10.9 Unspecified abdominal pain (principal); Z53.21 Procedure and treatment not carried out due to patient leaving prior to being seen by health care provider

== ENCOUNTER 2025-05-16 12:54 | Emergency (ER) | payer MEDICAID ==
[~2025-05-16] VITALS: Ht 165.1 cm; Wt 72.0 kg
[~2025-05-16 12:54] MED LIST changes: -ACET-66 PO; -AMLO5TAB66 PO; -IBUP-1492 PO; -IBUP-1554 PO; -METH-659 PO; -PENI500T2 PO; -PRED-554 PO
[2025-05-16 13:06] VITALS: BP 137/100; PULSE 114; RESP 16; TEMP 98.2; O2SAT 99
== END 2025-05-16 14:38 | disposition left against medical advice (07) ==
LOC: EMS 12:55
DX: R10.9 Unspecified abdominal pain (principal); Z53.21 Procedure and treatment not carried out due to patient leaving prior to being seen by health care provider

== ENCOUNTER 2025-05-16 20:45 | Emergency (ER) | payer MEDICAID ==
[~2025-05-16] VITALS: Ht 167.6 cm; Wt 84.1 kg
[2025-05-16 23:23] LABS: PLATELET COUNT (AUTO) 333 K/uL (150-450); RED BLOOD CELL COUNT(AUTO) 5.18 MIL/uL (4.50-5.90); RED CELL DISTRIBUTION WIDTH 13.2 % (11.5-14.5); WHITE BLOOD COUNT (AUTO) 10.5 K/uL (4.5-11.0)
[2025-05-16 23:25] LABS: CALCIUM, TOTAL 8.9 mg/dL (8.8-10.5); CREATININE 0.86 mg/dL (0.60-1.30); GLOMERULAR FILTR. RATE CALC > 60 mL/min (>60); GLUCOSE,RANDOM 96 mg/dL (70-110); SODIUM SERUM 136 mmol/L (136-145); UREA NITROGEN, BLOOD 14 mg/dL (7-18)
[2025-05-16 23:29] LABS: ASPARTATE AMINOTRANSFERASE 24.0 U/L (15-37); TOTAL PROTEIN, SERUM 8.0 g/dL (6.4-8.2)
[2025-05-17 04:04] VITALS: BP 137/99; PULSE 73; RESP 16; TEMP 97.5; O2SAT 96
== END 2025-05-17 06:07 | disposition home or self-care (01) ==
LOC: EMS 20:45
DX: K42.9 Umbilical hernia without obstruction or gangrene (principal); I10 Essential (primary) hypertension; F15.90 Other stimulant use, unspecified, uncomplicated; F17.210 Nicotine dependence, cigarettes, uncomplicated; F10.90 Alcohol use, unspecified, uncomplicated; F12.90 Cannabis use, unspecified, uncomplicated; Z79.899 Other long term (current) drug therapy; Z98.890 Other specified postprocedural states; Y90.9 Presence of alcohol in blood, level not specified
CPT/HCPCS: 80048; 80076; 85025; 99283

== ENCOUNTER 2025-05-22 22:46 | Emergency (ER) | payer MEDICAID | END 2025-05-22 23:29 | disposition left against medical advice (07) | LOC: EMS 22:48 | DX: R69 Illness, unspecified (principal); Z53.21 Procedure and treatment not carried out due to patient leaving prior to being seen by health care provider ==

== ENCOUNTER 2025-08-10 16:08 | Emergency (ER) | payer MEDICAID ==
[~2025-08-10] VITALS: Ht 167.6 cm; Wt 77.3 kg
[2025-08-10 16:11] VITALS: TEMP 98.1
[2025-08-10 16:57] LABS: PLATELET COUNT (AUTO) 262 K/uL (150-450); RED BLOOD CELL COUNT(AUTO) 5.23 MIL/uL (4.50-5.90); RED CELL DISTRIBUTION WIDTH 13.1 % (11.5-14.5); WHITE BLOOD COUNT (AUTO) 9.9 K/uL (4.5-11.0)
[2025-08-10 17:02] LABS: CALCIUM, TOTAL 8.8 mg/dL (8.8-10.5); CREATININE 0.97 mg/dL (0.60-1.30); GLOMERULAR FILTR. RATE CALC > 60 mL/min (>60); GLUCOSE,RANDOM 83 mg/dL (70-110); SODIUM SERUM 137 mmol/L (136-145); UREA NITROGEN, BLOOD 10 mg/dL (7-18)
[2025-08-10 17:10] LABS: TROPONIN I-HIGH SENSITIVITY 8 ng/L (<76)
[2025-08-10] MEDS: MECLIZINE HCL 25 MG TABLET PO ONE (18:12)
[2025-08-10 19:25] VITALS: BP 170/111; PULSE 95; RESP 16; O2SAT 97
[2025-08-10] MEDS ORDERED: AMLO-258 PO (19:37)
[2025-08-10] MEDS ORDERED: MECL-134 PO (19:37)
[2025-08-10] MEDS ORDERED: OMEP-148 PO (19:37)
== END 2025-08-10 19:59 | disposition home or self-care (01) ==
LOC: EMS 16:08
DX: R42 Dizziness and giddiness (principal); I10 Essential (primary) hypertension; F10.10 Alcohol abuse, uncomplicated; F12.90 Cannabis use, unspecified, uncomplicated; F17.210 Nicotine dependence, cigarettes, uncomplicated; Z91.199 Patient's noncompliance with other medical treatment and regimen due to unspecified reason; Z59.00 Homelessness unspecified; Z79.899 Other long term (current) drug therapy; Z98.890 Other specified postprocedural states; Y90.9 Presence of alcohol in blood, level not specified
CPT/HCPCS: 71045; 80048; 84484; 85025; 93005; 99285; 36415-L1; 36415-TC